=== PATIENT | male | born 1970 | race Caucasian/White ===

== ENCOUNTER 2016-08-18 04:51 | Emergency (ER) | payer MEDICAID ==
[~2016-08-18 04:51] MED LIST: ADVIL200 MG PO; NICODERM C1 PATCH .3 TD
[2016-08-18 05:25] LABS: BASOPHILS 0.6 % (0-2); HEMATOCRIT 45.6 % (42.0-54.0); HEMOGLOBIN 15.4 g/dL (13.5-17.5); IMMATURE GRANULOCYTES 0.5 % (0-5); LYMPHOCYTES 23.7 % (15-50); MCH 31.9 pg (26.0-34.0); MCHC 33.8 g/dL (31.0-37.0); MCV 94.4 fL (80.0-100.0); MEAN PLATELET VOLUME 9.4 fL (7.4-10.4); NEUTROPHILS 60.2 % (40-80); PLATELET COUNT 270 10x3/uL (130-400); RBC 4.83 10x6/uL (4.20-6.10); RDW 12.8 % (11.5-14.5)
[2016-08-18 05:40] LABS: ALBUMIN 3.6 g/dL (3.4-5.0); ALKALINE PHOSPHATASE 69 U/L (46-116); ALT (SGPT) 44 U/L (10-68); BILIRUBIN - TOTAL 0.31 mg/dL (0.2-1.3); CALC OSMOLALITY 282 mosm/kg (275-300); CHLORIDE - SERUM 104 mmol/L (98-107); CREATININE - SERUM 0.9 mg/dL (0.6-1.3); POTASSIUM - SERUM 3.6 mmol/L (3.5-5.1); PROTEIN - SERUM 7.5 g/dL (6.4-8.2); SODIUM 140 mmol/L (136-145); UREA NITROGEN 8 mg/dL (7-18); eGFR NON AFRICAN AMERICAN > 90 mL/min (90-120)
[2016-08-18 05:45] LABS: GLUCOSE 198 mg/dL (74-106)
[2016-08-18 05:50] LABS: CKMB 1.5 U/L (0.0-3.6); CREATINE KINASE 201 UL (21-232)
[2016-08-18 05:56] LABS: TROPONIN-I < 0.017 ng/mL (0.000-0.060)
== END 2016-08-18 06:06 | disposition home or self-care (01) ==
LOC: D.ER 04:51
PROVIDERS: Emergency Medicine
DX: R73.9 Hyperglycemia, unspecified (principal); F17.200 Nicotine dependence, unspecified, uncomplicated

== ENCOUNTER 2018-02-27 02:14 | Emergency (ER) | payer MEDICAID ==
[~2018-02-27] VITALS: Ht 172.7 cm; Wt 68.2 kg
[2018-02-27 02:22] VITALS: BP 162/101; Ht 172.7 cm; Wt 68.2 kg
== END 2018-02-27 02:59 | disposition home or self-care (01) ==
LOC: D.ER 02:14
DX: R68.84 Jaw pain (principal); F17.200 Nicotine dependence, unspecified, uncomplicated

== ENCOUNTER 2019-05-26 21:14 | Emergency (ER) | payer MEDICAID ==
[~2019-05-26] VITALS: Ht 172.7 cm; Wt 70.5 kg
[2019-05-26 21:15] VITALS: Ht 172.7 cm; Wt 70.5 kg
[2019-05-26 21:42] LABS: BASOPHILS 0.6 % (0-2); EOSINOPHILS 3.1 % (0-7); HEMATOCRIT 52.4 % (42.0-54.0); HEMOGLOBIN 17.7 g/dL (13.5-17.5); IMMATURE GRANULOCYTES 0.3 % (0-5); LYMPHOCYTES 18.4 % (15-50); MCH 31.8 pg (26.0-34.0); MCHC 33.8 g/dL (31.0-37.0); MCV 94.1 fL (80.0-100.0); MEAN PLATELET VOLUME 9.5 fL (7.4-10.4); NEUTROPHILS 66.6 % (40-80); PLATELET COUNT 294 10x3/uL (130-400); RBC 5.57 10x6/uL (4.20-6.10); RDW 12.4 % (11.5-14.5); WBC 15.9 10x3/uL (4.8-10.8)
[2019-05-26 21:48] LABS: CALC OSMOLALITY 271 mosm/kg (275-300); CALCIUM 9.9 mg/dL (8.5-10.1); CARBON DIOXIDE 24.3 mmol/L (21.0-32.0); CHLORIDE - SERUM 97 mmol/L (98-107); CREATININE - SERUM 1.2 mg/dL (0.6-1.3); POTASSIUM - SERUM 3.7 mmol/L (3.5-5.1); SODIUM 136 mmol/L (136-145); UREA NITROGEN 9 mg/dL (7-18); eGFR NON AFRICAN AMERICAN 69 mL/min (90-120)
[2019-05-26 21:53] LABS: GLUCOSE 113 mg/dL (74-106)
[2019-05-26 21:55] LABS: BILIRUBIN NEGATIVE (NEGATIVE); GLUCOSE NEGATIVE (NEGATIVE); KETONE NEGATIVE (NEGATIVE); NITRITE NEGATIVE (NEGATIVE); UROBILINOGEN NORMAL (NORMAL)
[2019-05-26 21:57] LABS: UDS - AMPHET NEGATIVE QUAL (NEGATIVE); UDS - BARB NEGATIVE QUAL (NEGATIVE); UDS - BENZO POSITIVE QUAL (NEGATIVE); UDS - COCAINE NEGATIVE QUAL (NEGATIVE); UDS - OPIATE NEGATIVE QUAL (NEGATIVE); UDS - PCP NEGATIVE QUAL (NEGATIVE); UDS - THC POSITIVE QUAL (NEGATIVE)
[2019-05-26 22:03] LABS: ALBUMIN 4.3 g/dL (3.4-5.0); ALKALINE PHOSPHATASE 82 U/L (30-120); ALT (SGPT) 39 U/L (10-68); BILIRUBIN - TOTAL 0.58 mg/dL (0.2-1.3); CREATINE KINASE 182 UL (21-232); PRO BNP 88 pg/mL (0-125); PROTEIN - SERUM 8.5 g/dL (6.4-8.2); THYROID STIMULATING HORMONE 4.51 uIU/mL (0.36-3.74); TROPONIN-I < 0.017 ng/mL (0.000-0.060)
[2019-05-26] MEDS ORDERED: AZITHROMYCIN500 MG PO (22:23)
[2019-05-26] MEDS ORDERED: COMBIVENT RESPIM4 GM INH (22:23)
[2019-05-26] MEDS ORDERED: PROAIR HFA8.5 G1 INH (22:23)
[2019-05-26 23:13] VITALS: BP 157/89
== END 2019-05-26 23:13 | disposition home or self-care (01) ==
LOC: D.ER 21:14
PROVIDERS: Family Medicine
DX: J44.9 Chronic obstructive pulmonary disease, unspecified (principal); R55 Syncope and collapse; Z72.0 Tobacco use

== ENCOUNTER 2019-08-15 11:43 | Inpatient (IN) | payer MEDICAID ==
[~2019-08-15] VITALS: Ht 172.7 cm; Wt 70.5 kg
[~2019-08-15 11:43] MED LIST changes: +AZITHROMYCIN500 MG PO; +COMBIVENT RESPIM4 GM INH; +PROAIR HFA8.5 G1 INH
[2019-08-15 12:00] VITALS: BP 135/91
[2019-08-15 12:50] LABS: APTT 23.9 SECONDS (22.8-39.4); INR 0.95 (0.85-1.17); PROTIME 12.6 SECONDS (11.6-15.0)
[2019-08-15 12:51] LABS: D-DIMER-QUANTITATIVE 0.35 ug/mLFEU (0.20-0.54)
[2019-08-15 12:52] LABS: CALC OSMOLALITY 266 mosm/kg (275-300); CALCIUM 9.4 mg/dL (8.5-10.1); CARBON DIOXIDE 24.5 mmol/L (21.0-32.0); CHLORIDE - SERUM 99 mmol/L (98-107); CREATININE - SERUM 0.9 mg/dL (0.6-1.3); GLUCOSE 122 mg/dL (74-106); POTASSIUM - SERUM 3.5 mmol/L (3.5-5.1); SODIUM 134 mmol/L (136-145); UREA NITROGEN 7 mg/dL (7-18); eGFR NON AFRICAN AMERICAN > 90 mL/min (90-120)
[2019-08-15 12:57] LABS: BASOPHILS 0.5 % (0-2); EOSINOPHILS 2.4 % (0-7); HEMOGLOBIN 16.4 g/dL (13.5-17.5); IMMATURE GRANULOCYTES 0.3 % (0-5); LYMPHOCYTES 14.9 % (15-50); MCHC 34.9 g/dL (31.0-37.0); MCV 91.8 fL (80.0-100.0); NEUTROPHILS 70.9 % (40-80); PLATELET COUNT 215 10x3/uL (130-400); RBC 5.12 10x6/uL (4.20-6.10); RDW 12.4 % (11.5-14.5); WBC 7.4 10x3/uL (4.8-10.8)
[2019-08-15 13:00] VITALS: BP 137/87
[2019-08-15 13:11] LABS: ALBUMIN 4.2 g/dL (3.4-5.0); ALKALINE PHOSPHATASE 84 U/L (30-120); ALT (SGPT) 253 U/L (10-68); BILIRUBIN - TOTAL 0.84 mg/dL (0.2-1.3); CKMB 2.5 U/L (0.0-3.6); CREATINE KINASE 256 UL (21-232); MAGNESIUM - SERUM 2.1 mg/dL (1.8-2.4); PRO BNP 178 pg/mL (0-125); PROTEIN - SERUM 8.1 g/dL (6.4-8.2); TROPONIN-I < 0.017 ng/mL (0.000-0.060)
--- NOTE | 2019-08-15 13:15 | NUR ---
URINE COLLECTED AND SENT TO LAB VIA TUBE SYSTEM.
[2019-08-15 13:47] LABS: UDS - AMPHET NEGATIVE QUAL (NEGATIVE); UDS - BARB NEGATIVE QUAL (NEGATIVE); UDS - BENZO NEGATIVE QUAL (NEGATIVE); UDS - COCAINE NEGATIVE QUAL (NEGATIVE); UDS - OPIATE NEGATIVE QUAL (NEGATIVE); UDS - PCP NEGATIVE QUAL (NEGATIVE); UDS - THC POSITIVE QUAL (NEGATIVE)
[2019-08-15 13:54] LABS: BILIRUBIN NEGATIVE (NEGATIVE); GLUCOSE 100 mg/dL (NEGATIVE); KETONE NEGATIVE (NEGATIVE); NITRITE NEGATIVE (NEGATIVE); SPECIFIC GRAVITY 1.015 (1.005-1.020); UROBILINOGEN NORMAL (NORMAL)
[2019-08-15 13:55] LABS: BACTERIA FEW /hpf (NEGATIVE); EPITHELIAL CELLS NSEEN /hpf (0-5); RED CELLS - URINE 0-5 /hpf (0-5); WHITE CELLS - URINE NSEEN /hpf (NEGATIVE)
[2019-08-15 14:00] VITALS: BP 143/84
[2019-08-15] MEDS ORDERED: VENTOLIN HFA [SP8 GM INH (14:20)
[2019-08-15] MEDS ORDERED: MEDROL DOSE PACK4 MG PO (14:21)
[2019-08-15 15:00] VITALS: BP 145/84
[2019-08-15 16:51] VITALS: BP 148/87; Ht 172.7 cm; Wt 70.5 kg
[2019-08-15 17:53] LABS: CKMB 5.2 U/L (0.0-3.6)
[2019-08-15 17:55] LABS: CREATINE KINASE 389 UL (21-232); TROPONIN-I < 0.017 ng/mL (0.000-0.060)
--- NOTE | 2019-08-15 19:23 | NUR ---
STREP TEST TAKEN AND SENT TO LAB.
[2019-08-15 20:00] VITALS: BP 134/90
--- NOTE | 2019-08-15 20:00 | NUR ---
A&O X 4, S/O AT BEDSIDE. DENIES PAIN. REPORTS THIS IS 2ND INCIDENT OF SEIZURE, FIRST INCIDENT WAS ON GOOD WEDNESDAY OF THIS YEAR. REPORTS SEIZURES ARE FULL BODY SPASM WITH LOSS OF CONCIOUSNESS. S/O REPORTS SHE HAS WITNESSED BOTH. DENIES NEEDS AT THIS TIME, WILL MONITOR CLOSELY.
[2019-08-15 22:50] LABS: CREATINE KINASE 448 UL (21-232); TROPONIN-I < 0.017 ng/mL (0.000-0.060)
[2019-08-16] VITALS: BP 115/82
--- NOTE | 2019-08-16 02:38 | NUR ---
I have reviewed this patient and I concur with the Shift Assessment completed by the Licensed Practical Nurse today this shift.
[2019-08-16 04:00] VITALS: BP 140/87
[2019-08-16 04:39] LABS: BASOPHILS 0.1 % (0-2); EOSINOPHILS 0 % (0-7); HEMATOCRIT 42.7 % (42.0-54.0); HEMOGLOBIN 14.2 g/dL (13.5-17.5); IMMATURE GRANULOCYTES 0.3 % (0-5); LYMPHOCYTES 8.8 % (15-50); MCH 31.1 pg (26.0-34.0); MCHC 33.3 g/dL (31.0-37.0); MCV 93.4 fL (80.0-100.0); MEAN PLATELET VOLUME 10.3 fL (7.4-10.4); MONOCYTES 7.4 % (2-11); NEUTROPHILS 83.4 % (40-80); PLATELET COUNT 215 10x3/uL (130-400); RBC 4.57 10x6/uL (4.20-6.10); RDW 12.6 % (11.5-14.5); WBC 7.3 10x3/uL (4.8-10.8)
[2019-08-16 04:51] LABS: ALBUMIN 3.5 g/dL (3.4-5.0); ALKALINE PHOSPHATASE 70 U/L (30-120); BILIRUBIN - TOTAL 0.52 mg/dL (0.2-1.3); CALC OSMOLALITY 273 mosm/kg (275-300); CALCIUM 8.3 mg/dL (8.5-10.1); CARBON DIOXIDE 25.2 mmol/L (21.0-32.0); CHLORIDE - SERUM 102 mmol/L (98-107); CKMB 4.8 U/L (0.0-3.6); CREATINE KINASE 416 UL (21-232); CREATININE - SERUM 0.8 mg/dL (0.6-1.3); GLUCOSE 138 mg/dL (74-106); MAGNESIUM - SERUM 2.4 mg/dL (1.8-2.4); SODIUM 137 mmol/L (136-145); UREA NITROGEN 7 mg/dL (7-18); eGFR NON AFRICAN AMERICAN > 90 mL/min (90-120)
[2019-08-16 04:54] LABS: ALT (SGPT) 172 U/L (10-68); TROPONIN-I < 0.017 ng/mL (0.000-0.060)
[2019-08-16 09:11] VITALS: BP 142/88
[2019-08-16 12:22] VITALS: BP 137/80
[2019-08-16 17:04] VITALS: BP 140/79
--- NOTE | 2019-08-16 19:11 | NUR ---
PATIENT IN BED WITH IV INTACT. NO COMPLAINTS OR SIGNS OF DISTRESS. FAMILY AT BEDSIDE. CALL LIGHT WITHIN REACH.
[2019-08-16 20:00] VITALS: BP 137/83
--- NOTE | 2019-08-17 00:32 | NUR ---
I have reviewed this patient and I concur with the Shift Assessment completed by the Licensed Practical Nurse today this shift.
[2019-08-17 04:00] VITALS: BP 140/80
[2019-08-17 07:05] LABS: BASOPHILS 0.3 % (0-2); EOSINOPHILS 2.9 % (0-7); HEMATOCRIT 40.7 % (42.0-54.0); HEMOGLOBIN 13.3 g/dL (13.5-17.5); IMMATURE GRANULOCYTES 0.4 % (0-5); LYMPHOCYTES 27.8 % (15-50); MCH 31.1 pg (26.0-34.0); MCHC 32.7 g/dL (31.0-37.0); MCV 95.1 fL (80.0-100.0); MEAN PLATELET VOLUME 10.1 fL (7.4-10.4); MONOCYTES 10.7 % (2-11); NEUTROPHILS 57.9 % (40-80); PLATELET COUNT 219 10x3/uL (130-400); RBC 4.28 10x6/uL (4.20-6.10); RDW 12.8 % (11.5-14.5)
[2019-08-17 07:10] LABS: WBC 10.5 10x3/uL (4.8-10.8)
[2019-08-17 07:30] LABS: ALBUMIN 3.1 g/dL (3.4-5.0); ALKALINE PHOSPHATASE 58 U/L (30-120); BILIRUBIN - TOTAL 0.45 mg/dL (0.2-1.3); CALC OSMOLALITY 278 mosm/kg (275-300); CALCIUM 8.1 mg/dL (8.5-10.1); CARBON DIOXIDE 25.8 mmol/L (21.0-32.0); CHLORIDE - SERUM 109 mmol/L (98-107); CKMB 3.1 U/L (0.0-3.6); CREATININE - SERUM 0.7 mg/dL (0.6-1.3); GLUCOSE 99 mg/dL (74-106); MAGNESIUM - SERUM 2.6 mg/dL (1.8-2.4); PHOSPHOROUS 2.9 mg/dL (2.5-4.9); POTASSIUM - SERUM 3.6 mmol/L (3.5-5.1); PROTEIN - SERUM 6.2 g/dL (6.4-8.2); SODIUM 141 mmol/L (136-145); TROPONIN-I < 0.017 ng/mL (0.000-0.060); UREA NITROGEN 7 mg/dL (7-18); eGFR NON AFRICAN AMERICAN > 90 mL/min (90-120)
[2019-08-17 07:32] LABS: ALT (SGPT) 124 U/L (10-68); CREATINE KINASE 268 UL (21-232)
--- NOTE | 2019-08-17 08:29 | NUR ---
PATIENT SITTING UP EATING BREAKFAST. SHIFT ASSESSMENT COMPLETE. BC IN ROOM ASSISTING. CL IN REACH. NO NEEDS AT THIS TIME. LOOKING FORWARD TO DISCHARGE. TM
[2019-08-17 09:00] VITALS: BP 144/95
--- NOTE | 2019-08-17 12:29 | NUR ---
DISCHARGE EDUCATION PROVIDED BOTH WRITTEN AND VERBAL. VERBALIZED UNDERSTANDING. DENIES FURTHER QUESTIONS. IV REMOVED FROM LEFT AC WITH TIP INTACT. TELEMETRY REMOVED AND RETURNED TO [facility]. PATIENT DC HOME WITH ALL BELONGINGS.
== END 2019-08-17 12:38 | disposition home or self-care (01) | DRG 100 ==
LOC: D.ER 11:43 → D.MS 15:51
PROVIDERS: Family Medicine; ADMIT Family Medicine; ATTEND Family Medicine
DX: R56.9 Unspecified convulsions (principal); G92 Toxic encephalopathy; J44.1 Chronic obstructive pulmonary disease with (acute) exacerbation; E87.1 Hypo-osmolality and hyponatremia; F17.203 Nicotine dependence unspecified, with withdrawal; F10.10 Alcohol abuse, uncomplicated; J20.9 Acute bronchitis, unspecified; F12.90 Cannabis use, unspecified, uncomplicated

== ENCOUNTER 2019-09-16 11:44 | Emergency (ER) | payer MEDICAID ==
[~2019-09-16 11:44] MED LIST changes: +MEDROL DOSE PACK4 MG PO; +VENTOLIN HFA [SP8 GM INH
[2019-09-16 11:49] VITALS: Ht 172.7 cm
[2019-09-16 12:17] LABS: BASOPHILS 0.9 % (0-2); EOSINOPHILS 1.2 % (0-7); HEMATOCRIT 49.1 % (42.0-54.0); HEMOGLOBIN 17.2 g/dL (13.5-17.5); IMMATURE GRANULOCYTES 0.5 % (0-5); LYMPHOCYTES 27.1 % (15-50); MCH 31.9 pg (26.0-34.0); MCV 91.1 fL (80.0-100.0); MEAN PLATELET VOLUME 9.4 fL (7.4-10.4); MONOCYTES 9.2 % (2-11); NEUTROPHILS 61.1 % (40-80); RBC 5.39 10x6/uL (4.20-6.10); RDW 12.7 % (11.5-14.5); WBC 8.8 10x3/uL (4.8-10.8)
[2019-09-16 12:22] LABS: PLATELET COUNT 277 10x3/uL (130-400)
[2019-09-16 12:28] LABS: APTT 29.7 SECONDS (22.8-39.4); CALC OSMOLALITY 271 mosm/kg (275-300); CALCIUM 9.9 mg/dL (8.5-10.1); CARBON DIOXIDE 22.6 mmol/L (21.0-32.0); CHLORIDE - SERUM 101 mmol/L (98-107); CREATININE - SERUM 0.9 mg/dL (0.6-1.3); GLUCOSE 114 mg/dL (74-106); INR 0.9 (0.85-1.17); POTASSIUM - SERUM 3.7 mmol/L (3.5-5.1); PROTIME 12.1 SECONDS (11.6-15.0); SODIUM 136 mmol/L (136-145); UREA NITROGEN 9 mg/dL (7-18); eGFR NON AFRICAN AMERICAN > 90 mL/min (90-120)
[2019-09-16 12:46] LABS: ALBUMIN 4.7 g/dL (3.4-5.0); ALKALINE PHOSPHATASE 95 U/L (30-120); ALT (SGPT) 31 U/L (10-68); BILIRUBIN - TOTAL 0.62 mg/dL (0.2-1.3); C-REACTIVE PROTEIN 0.5 mg/dL (0.0-0.9); CKMB 1.8 U/L (0.0-3.6); CREATINE KINASE 218 UL (21-232); PRO BNP 19 pg/mL (0-125); PROTEIN - SERUM 8.6 g/dL (6.4-8.2); TROPONIN-I < 0.017 ng/mL (0.000-0.060)
[2019-09-16] MEDS ORDERED: ZPAK PO (13:05)
[2019-09-16] MEDS ORDERED: PREDNISONE20 MG PO (13:05)
[2019-09-16 13:27] VITALS: BP 149/83
== END 2019-09-16 13:27 | disposition home or self-care (01) ==
LOC: D.ER 11:44
PROVIDERS: Family Medicine
DX: J44.1 Chronic obstructive pulmonary disease with (acute) exacerbation (principal); Z72.0 Tobacco use; R06.00 Dyspnea, unspecified

== ENCOUNTER → 2019-09-18 07:58 | Outpatient (CLI) | payer MEDICAID ==
[2019-09-16 11:49] VITALS: BMI 23.6
[~2019-09-18 07:58] MED LIST changes: +PREDNISONE20 MG PO; +ZPAK PO
== END | disposition home or self-care (01) ==
LOC: D.RT 07:58
PROVIDERS: ATTEND Internal Medicine Pulmonary Disease
DX: R05 Cough (principal); R06.02 Shortness of breath; J44.9 Chronic obstructive pulmonary disease, unspecified; Z72.0 Tobacco use; Z11.59 Encounter for screening for other viral diseases

== ENCOUNTER → 2019-12-01 09:33 | Outpatient (CLI) | payer MEDICAID ==
[2019-09-16 11:49] VITALS: BMI 23.6
== END | disposition home or self-care (01) ==
LOC: D.MRI 11-29 10:00
PROVIDERS: ATTEND Psychiatry & Neurology Neurology
DX: R41.9 Unspecified symptoms and signs involving cognitive functions and awareness (principal)